=== PATIENT | female | born 1990 | race Caucasian/White ===

== ENCOUNTER 2016-11-17 07:43 | Emergency (ER) | payer OTHER | END 2016-11-17 09:13 | disposition home or self-care (01) | LOC: ER 07:43 | DX: J06.9 Acute upper respiratory infection, unspecified (principal); J32.0 Chronic maxillary sinusitis; F17.210 Nicotine dependence, cigarettes, uncomplicated; Z90.49 Acquired absence of other specified parts of digestive tract; Z88.2 Allergy status to sulfonamides | CPT/HCPCS: 87502 ==